=== PATIENT | female | born 1955 | race Caucasian/White ===

== ENCOUNTER 2018-07-24 09:15 | Emergency (ER) | payer OTHER ==
[2018-07-24 10:07] VITALS: BP 122/91
--- NOTE | 2018-07-24 10:27 | UC ---
General HPI - HPI Summary HPI Summary: 63 yo female c/o two issues: "I think I have bronchitis." + cough x several weeks, worse last few days. Was placed on abx (amoxicillin?) a few weeks ago, but didn't think it helped. Recently reports having PFTs. Not currently using inhaler. Has been very busy , also pollin quality recently changed, exacerbating symptoms. No fever / chills. No hemoptysis. No GI issues. + sinus congestion. Left knee pain. Tripped and fell approx 5 weeks ago. Pain immediately in knee , improved after a week or so (did not resolve), and then worsened. Uses crutches to assist with ambulation, they are her own. Hurts to bear weight. Pain sometimes radiates down ant tib. Also c/o soreness post knee. Feels better with compression. O/w without p/d/w. R knee ok. Denies previous knee injury. - History of Current Complaint Chief Complaint: UCLowerExtremity Stated Complaint: LEFT KNEE COMPLAINT Time Seen by Provider: 07/24/18 10:05 Hx Obtained From: Patient Hx Last Menstrual Period: 12 yrs Pain Intensity: 7 - Allergy/Home Medications Allergies/Adverse Reactions: Allergies Allergy/AdvReac Type Severity Reaction Status Date / Time shellfish derived Allergy Hives Verified 07/24/18 09:58 Sulfa (Sulfonamide Allergy GI Upset Verified 07/24/18 09:58 Antibiotics) Home Medications: Home Medications Cholecalciferol (Vitamin D3) [Vitamin D3] 1,000 unit PO DAILY 07/24/18 [History Confirmed 07/24/18] guaiFENesin ER TAB [Mucinex*] 600 mg PO BID PRN 07/24/18 [History Confirmed ] PMH/Surg Hx/FS Hx/Imm Hx Previously Healthy: Yes - see hpi - Surgical History Surgical History: Yes Surgery Procedure, Year, and Place: tonsillectomy. appendectomy - Family History Known Family History: Positive: Unknown - Social History Alcohol Use: Occasionally Substance Use Type: None Smoking Status (MU): Former Smoker Have You Smoked in the Last Year: No When Did the Patient Quit Smoking/Using Tobacco: 2009 - Immunization History Most Recent Influenza Vaccination: not this season Review of Systems Constitutional: Negative Skin: Negative Eyes: Negative ENT: Nasal Discharge, Sinus Congestion Respiratory: Cough Cardiovascular: Negative Gastrointestinal: Negative Genitourinary: Negative Motor: Other - see hpi Neurovascular: Other - see hpi Musculoskeletal: Arthralgia - see hpi Neurological: Negative Psychological: Negative Is Patient Immunocompromised?: No All Other Systems Reviewed And Are Negative: Yes Physical Exam Triage Information Reviewed: Yes Appearance: Well-Nourished Vital Signs: Initial Vital Signs Temp 98.3 F 07/24/18 10:00 Pulse 68 07/24/18 10:00 Resp 16 07/24/18 10:00 BP 122/91 07/24/18 10:00 Pulse Ox 100 07/24/18 10:00 Vital Signs Reviewed: Yes Eye Exam: Normal ENT: Positive: Pharyngeal erythema, Nasal congestion Neck exam: Normal Neck: Positive: Supple Respiratory Exam: Other - + rhonchorus cough. breath sounds equal, + exp wheeze bibas. No stridor. Respiratory: Positive: Chest non-tender, Wheezing Cardiovascular Exam: Normal Cardiovascular: Positive: RRR, Brisk Capillary Refill Abdominal Exam: Normal Abdomen Description: Positive: Nontender Musculoskeletal Exam: Other - Left knee mild swelling. + tender post knee ( consider bakers cyst). Tender medial knee approx fem-tib region. Tender weight bear. Distal NVI. No post calf pain / swelling / tenderness appreciated. Neurological Exam: Normal - dp / pt palbable, foot warm to touch. + dist sens LT nuero grossly nonfocal Psychological Exam: Normal - conversing easily and appropriately Skin Exam: Normal - no visible or reported rash, except psoriasis post heel(pt reports usual) Course/Dx - Course Course Of Treatment: Reviewed xray report with pt. Reviewed coa / tx plan. Questions as posed answered to the best of my ability. F/u PCP encouraged. Referral orthopedist. Has her own crutches. - Differential Dx - Multi-Symptom Provider Diagnoses: Osteoarthritis. Bronchitis. Suspect miller's cyst. Consider meniscal injury Discharge - Sign-Out/Discharge Documenting (check all that apply): Patient Departure All imaging exams completed and their final reports reviewed: Yes - Discharge Plan Condition: Stable Disposition: HOME Prescriptions: Albuterol HFA INHALER* [Ventolin HFA Inhaler*] 1 - 2 puff INH Q4H PRN #1 mdi PRN Reason: Wheezing DOXYcycline CAP(*) [DOXYcycline 100MG CAP(*)] 100 mg PO BID #28 cap predniSONE TAB* [Deltasone 10 MG TAB*] 10 mg PO DAILY #20 tab Patient Education Materials: Osteoarthritis (ED), Acute Bronchitis (ED), Bakers Cyst (ED), Wheezing (ED) Referrals: Yu Gross MD [Primary Care Provider] - Ta Almonte MD [Medical Doctor] - Additional Instructions: Follow up primary care physician per routine - recommend 1-2 weeks respiratory recheck. Follow up orthopedic surgeon - 1-2 weeks. Minimal weight bearing. Avoid non-steroidal antiinflammatory medications until prednisone complete. - Billing Disposition and Condition Condition: STABLE Disposition: Home
--- NOTE | 2018-07-24 11:00 | RAD ---
HISTORY: left knee pain persistent s/p fall COMPARISONS: None VIEWS: 4 , Frontal, lateral, axial, and oblique views of the left knee FINDINGS: BONE DENSITY: Normal. BONES: There is no displaced fracture. JOINTS: There is moderate tricompartmental osteoarthritis most pronounced within the patellofemoral compartment. There is a small subpatellar joint effusion without lipohemarthrosis. ALIGNMENT: There is no dislocation. SOFT TISSUES: Unremarkable. OTHER FINDINGS: None. IMPRESSION: OSTEOARTHRITIS. NO ACUTE OSSEOUS INJURY. IF SYMPTOMS PERSIST, RECOMMEND REPEAT IMAGING.
== END 2018-07-24 11:32 | disposition home or self-care (01) ==
LOC: UCCORT 09:15
DX: M19.90 Unspecified osteoarthritis, unspecified site (principal); J40 Bronchitis, not specified as acute or chronic
CPT/HCPCS: 99212; G0463